=== PATIENT | male | born 1945 | race Caucasian/White ===

== ENCOUNTER 2024-10-22 06:19 | Day surgery (SDC) | payer MEDICARE, OTHER, SELFPAY | END 2024-10-22 10:47 | disposition home or self-care (01) | LOC: GI 06:19 | PROVIDERS: ATTENDING PHYSICIAN Specialist; FAMILY PHYSICIAN Family Medicine | DX: Z12.11 Encounter for screening for malignant neoplasm of colon (principal); D12.2 Benign neoplasm of ascending colon; D12.3 Benign neoplasm of transverse colon; K57.30 Diverticulosis of large intestine without perforation or abscess without bleeding; K29.50 Unspecified chronic gastritis without bleeding; K31.7 Polyp of stomach and duodenum; K31.89 Other diseases of stomach and duodenum; R12 Heartburn; Z80.0 Family history of malignant neoplasm of digestive organs | CPT/HCPCS: 45380; 43239; 88305; 88342 ==

== ENCOUNTER → 2024-12-24 12:24 | Outpatient (REF) | payer MEDICARE, OTHER, SELFPAY | LOC: HWRCS 12:24 | PROVIDERS: ATTENDING PHYSICIAN Internal Medicine Cardiovascular Disease; FAMILY PHYSICIAN Family Medicine | DX: I48.0 Paroxysmal atrial fibrillation (principal) | CPT/HCPCS: 93306 ==